=== PATIENT | male | born 1950 | race Caucasian/White ===

== ENCOUNTER 2016-07-04 14:19 | Emergency (ER) | payer MEDICARE, BC ==
[2016-07-04 15:25] VITALS: BP 109/71
[2016-07-04 15:29] LABS: CHLORIDE,CL 103 mmol/L (98-107); SODIUM,NA 140 mmol/L (136-145)
--- NOTE | 2016-07-05 01:09 | ER ---
Date of Service: 07/04/2016 SUBJECTIVE: Kishor presents to the emergency room with complaints of diaphoresis and some lightheadedness. The patient states that he had just finished eating his lunch when he began experiencing these symptoms. The patient at no time experienced any chest discomfort. He has no history of coronary artery disease and no history of any other pertinent past medical history. However, he does not "doctor" according to his . He does have a history of being a heavy smoker. He states that he has never experienced symptoms like this in the past. PAST MEDICAL HISTORY: None. MEDICATIONS: None. ALLERGIES: NKDA. REVIEW OF SYSTEMS: General: No fever or chills. HEENT: No sore throat, rhinorrhea, or congestion. Respiratory: No shortness of breath. Cardiac: Denies any substernal chest pain. No jaw, arm, neck, or back pain. Gastrointestinal: No nausea, vomiting, or diarrhea. No melena, hematochezia, or hematemesis. Genitourinary: Denies any dysuria. Musculoskeletal: No myalgias or arthralgias. Skin: Does complain of being diaphoretic and feeling cold. Neurologic: Does complain of some mild lightheadedness. PHYSICAL EXAMINATION: General: This is a 65-year-old male patient, in no acute distress. Vital Signs: Please see STEMI protocols. Skin: Warm, pale, and dry. HEENT: Head is normocephalic, atraumatic. Eyes, PERRLA. Extraocular movements are intact. Mouth, oral mucosa is moist. Lungs: Clear to auscultation. Heart: Regular rate and rhythm. Normal S1, S2. No S3, S4, murmurs, clicks, or rubs. Abdomen: Soft, nontender. There is no hepatosplenomegaly noted. There are no masses noted. Extremities: Without edema. Neurologic: He is alert and oriented, answers all questions appropriately. His speech is fluent. His gait is within normal limits. DIAGNOSTIC DATA: A 12-lead EKG was obtained showing ST-elevation in II, III, and aVF with reciprocal change consistent with an ST-elevation myocardial infarction. A STEMI code. LABORATORY DATA: Labs including a CBC, comprehensive metabolic panel, troponin, CK-MB, PT, PTT, INR were obtained and are pending. EMERGENCY ROOM COURSE: An IV access was established. A STEMI code was called. The patient was given aspirin 324 mg p.o., Plavix 300 mg p.o. and was given 5000- unit heparin bolus. He did become bradycardic as he was departing the ER with a heart rate in the high 30s and EMS was instructed as they were leaving to give the patient 0.5 of atropine IV. The patient remained otherwise hemodynamically stable during his stay here in the emergency room. ASSESSMENT: Inferior wall ST-elevation myocardial infarction. PLAN: I spoke with Dr. Ledesma, the philanthropy officer at [facility] in [place]. The patient will be a direct admission to the [facility] [employer] [facility]. The patient is a code level 1. His was present during his care and is aware of the plan of care. All questions were answered. MWK: 07/04/2016 15:20:43 MODL: 07/05/2016 01:02:01 /[id number]
== END 2016-07-04 15:05 | disposition short-term general hospital (02) ==
LOC: VM.ED 14:19
DX: I21.19 ST elevation (STEMI) myocardial infarction involving other coronary artery of inferior wall (principal); F17.200 Nicotine dependence, unspecified, uncomplicated
CPT/HCPCS: 80053; 82550; 84484; 85025; 85610; 85730; 93005; 99285; 99285-GF